=== PATIENT | male | born 1955 | race African-American/Black ===

== ENCOUNTER 2017-08-15 08:38 | Emergency (ER) | payer MEDICAID, MEDICARE ==
[~2017-08-15] VITALS: Ht 182.9 cm; Wt 106.8 kg
[~2017-08-15 08:38] MED LIST: AMLO5TAB66 PO; HYDR25TA PO; LORA0.5T2 PO; METH10TA2 PO
[2017-08-15] MEDS ORDERED: OXYC10 PO (08:51)
[2017-08-15 09:41] VITALS: BP 161/104
== END 2017-08-15 10:13 | disposition home or self-care (01) ==
LOC: EMS 08:39
DX: S86.911A Strain of unspecified muscle(s) and tendon(s) at lower leg level, right leg, initial encounter (principal); I10 Essential (primary) hypertension; K21.9 Gastro-esophageal reflux disease without esophagitis; F41.9 Anxiety disorder, unspecified; F17.210 Nicotine dependence, cigarettes, uncomplicated; Z86.73 Personal history of transient ischemic attack (TIA), and cerebral infarction without residual deficits
CPT/HCPCS: 99282

== ENCOUNTER 2017-08-18 14:02 | Emergency (ER) | payer MEDICARE ==
[~2017-08-18] VITALS: Ht 180.3 cm; Wt 90.9 kg
[~2017-08-18 14:02] MED LIST changes: -LORA0.5T2 PO; -METH10TA2 PO; +OXYC10 PO
[2017-08-18] MEDS ORDERED: KETOROLAC TROMETHAMINE 10 MG TABLET PO ONE (15:30)
[2017-08-18 16:22] VITALS: BP 146/82
== END 2017-08-18 16:44 | disposition home or self-care (01) ==
LOC: EMS 14:04
DX: S83.91XA Sprain of unspecified site of right knee, initial encounter (principal); I10 Essential (primary) hypertension; K21.9 Gastro-esophageal reflux disease without esophagitis; F17.210 Nicotine dependence, cigarettes, uncomplicated; Z91.012 Allergy to eggs; X58.XXXA Exposure to other specified factors, initial encounter; Y93.89 Activity, other specified; Y92.89 Other specified places as the place of occurrence of the external cause; Y99.8 Other external cause status
CPT/HCPCS: 99284